=== PATIENT | male | born 1985 | race Caucasian/White ===

== ENCOUNTER 2021-09-20 17:15 | Emergency (ER) | payer SELFPAY ==
[2021-09-20] MEDS ORDERED: Boostrix 0.5 ML (Tdap) VIAL ONE (17:37)
[2021-09-20] MEDS ORDERED: Ibuprofen 200 MG TAB ONE (17:37)
== END 2021-09-20 18:32 | disposition home or self-care (01) ==
LOC: BURERS 17:15
DX: S52.121A Displaced fracture of head of right radius, initial encounter for closed fracture (principal); S00.11XA Contusion of right eyelid and periocular area, initial encounter; S00.83XA Contusion of other part of head, initial encounter; F17.210 Nicotine dependence, cigarettes, uncomplicated; W17.89XA Other fall from one level to another, initial encounter
CPT/HCPCS: 29105; 70150; 90471; 90715